=== PATIENT | female | born 1985 | race African-American/Black ===

== ENCOUNTER 2022-02-21 10:15 | Observation (INO) | payer SELFPAY ==
[2022-02-21] VITALS (31 sets, daily range): BP systolic 95–129; BP diastolic 54–85; PULSE 58–82; RESP 12–20; TEMP 36–37.2; O2SAT 94–100
--- NOTE | 2022-02-21 10:18 | ED.PREGNANCY ---
HPI - General Chief complaint: Vaginal Bleeding Stated complaint: vag bleed Time Seen by Provider: 02/21/22 10:18 History of Present Illness HPI Narrative: 37-year-old female per EMS was found in a bathtub filled with blood, with active bleeding and blood clots. Patient unable to provide much history, she is not sure that she is , she does have abdominal pain. Related Data Allergies Allergy/AdvReac Type Severity Reaction Status Date / Time Penicillins Allergy Unknown Verified 02/21/22 10:34 Review of Systems Review of Systems: CONST: No fever. HEENT: No sore throat C/V: No chest pain RESP: No difficulty breathing GI: Reports abdominal pain : Vaginal bleeding M/S: No joint pain. SKIN: No rash. NEURO: Lightheadedness PSYCH: [No depression] [facility] Past Medical History Medical History (Updated 02/21/22 @ 10:49 by Marilyn Willson MD) Asthma Surgical History Surgical History (Updated 02/21/22 @ 10:46 by Marilyn Willson MD) No history of previous surgery Exam Narrative: EXAMINATION OF ORGAN SYSTEMS/BODY AREAS: Constitutional: Vital signs per nursing GENERAL:Moaning and eyes closed in bed HEAD: Normal with no signs of head trauma. EYES: EOMI, conjunctiva normal ENT: Hearing grossly intact LUNGS: Nonlabored breathing. HEART: [Regular rate and rhythm] ABD: [Soft], [tender to palpation] : Active vaginal bleeding EXT: Normal range of motion SKIN: [No rashes or lesions.] NEURO: [No gross focal sensory or strength deficits.] PSYCH: Lethargic, answering questions but very slowly Course Vital Signs Vital signs: Vital Signs Temperature 98.0 F 02/21/22 10:11 Pulse Rate 58 L 02/21/22 10:11 Respiratory Rate 18 02/21/22 10:11 Blood Pressure 129/85 02/21/22 10:11 Pulse Oximetry 100 02/21/22 10:11 Oxygen Delivery Room Air 02/21/22 10:11 Temperature 98.0 F 02/21/22 10:11 Pulse Rate 58 L 02/21/22 10:11 Respiratory Rate 18 02/21/22 10:11 Blood Pressure 129/85 02/21/22 10:11 Pulse Oximetry 100 02/21/22 10:11 Oxygen Delivery Room Air 02/21/22 10:11 MDM - OB/Uterine Contractions MDM Narrative Medical decision making narrative: 37-year-old female presenting with active vaginal bleeding, vital signs within acceptable limits, on exam having active hemorrhage from vaginal vault and with tenderness to the abdomen, I did perform a quick bedside ultrasound, did not note any obvious blood in the right upper quadrant, I did note enlarged uterus with what appears to be possibly 15-week ; IV access obtained and patient immediately starting transfusion with blood, PRINT GRAPHIC DESIGNER contacted and Dr. Martin did evaluate the patient and will take her to the OR. Plan explained to patient. Discharge Plan Discharge Clinical Impression: Vaginal hemorrhage, Incomplete Patient Disposition: Still a Patient Condition: Serious
[2022-02-21 10:32] LABS: Basophils Absolute Auto 0.1 K/mm3 (0.0-0.1); Basophils Percent Auto 0.4 % (0.2-1.2); Eosinophils Percent Auto 0.1 % (0-4.4); Immature Granulocyte Absolute 0.07 K/mm3 (0.00-0.031); Immature Granulocyte Percent A 0.4 % (0-0.5); Lymphocytes Percent Auto 9.5 % (18.3-44.2); Mean Corpuscular HGB Conc 33.3 g/dl (32-36); Mean Corpuscular Hemoglobin 28.5 pg (26-34); Mean Corpuscular Volume 85.5 fl (80-100); Mean Platelet Volume 9.9 fl (7.4-10.4); Monocytes Absolute Auto 0.7 K/mm3 (0.1-0.6); Monocytes Percent Auto 4.5 % (2.6-8.5); Neutrophils Absolute Auto 13.5 K/mm3 (1.3-6.7); Neutrophils Percent Auto 85.1 % (45.5-73.1); Platelet Count Result 277 k/mm3 (150-375); Red Blood Count 4.21 M/mm3 (4.2-5.4); Red Cell Distribution Width 15.2 % (11.5-14.5); White Blood Count 15.9 K/mm3 (4.5-10.0)
--- NOTE | 2022-02-21 10:34 | WPDCN ---
Assessment and Plan Assessment and plan (1) Incomplete : Code(s): O03.4 - Incomplete spontaneous without complication Status: Acute Assessment and Plan: patient with incomplete ab cervical os approx. 4 cm dilated actively bleeding labs, inc. BHCG, T&C, coags to OR for emergent D&C pt unable to provide consent OR and anesthesia notified HPI Data of Consult Date/Time: 02/21/22 10:34 Requesting Physician: Saray Martin MD Primary Care Provider: UNKNOWN,DOCTOR Consult Narrative Narrative: Salome Ambrosio is a 37 year old female. Called by ED requesting immediate response. Arrived at patient bedside to find patient minimally responsive. Per report, patient was found in a bathtub full of blood at home. EMS was called and patient was brought to ED. It is unclear if patient knew that she was . It was reported that patient has had a few miscarriages in the past. Patient unable to answer questions. Review of Systems Review of Systems: ROS unobtainable: Yes unobtainable due to medical condition [facility] Past Medical History Medical History (Updated 02/21/22 @ 10:41 by Saray Martin MD) Asthma Meds Home Medications and Allergies Allergies Allergy/AdvReac Type Severity Reaction Status Date / Time Penicillins Allergy Unknown Verified 02/21/22 10:34 Vital Signs Vital Signs - 24 hr 02/21/22 10:11 Temperature 36.7 C Pulse Rate 58 L Respiratory Rate 18 Blood Pressure 129/85 Pulse Oximetry 100 Oxygen Delivery Room Air Exam Const: General: ill appearing and patient obtunded HENMT: Head: normal to inspection Eyes: General: appearance normal, both eyes and all related structures Neck: Neck: normal visual inspection GI: Inspection: non-distended GI Palp: Yes Soft to palpation : Other: copious amount of blood on towels and chux beneath patient, clot visualized at introitus, cervix approx. 4 cm dilated with tense bulging membranes palpated at os, uterus approx. 16w size Skin: General skin exam: normal color and no rashes or lesions noted
[2022-02-21] MEDS: fentaNYL CITRATE INJ (*CRX) 250 MCG/5 ML VIAL 50 MCG IV PUSH (10:44)
[2022-02-21] MEDS: TUBING, BLOOD SET 1 EACH XX (10:45)
--- NOTE | 2022-02-21 10:57 | PC.NURSE ---
Driver License Reviewing Officer straight cathed patient to obtain drug screen per Dr. Martin's verbal order. After removing catheter, patient passed encapsulated fetus. Patient then passed placenta shortly after fetus.
[2022-02-21] MEDS: fentaNYL CITRATE INJ (*CRX) 100 MCG/2 ML VIAL IV PUSH (11:00)
--- NOTE | 2022-02-21 11:19 | PC.NURSE ---
Academic Support Director contacted regarding . Academic Support Director to return phone call.
[2022-02-21] MEDS: miSOPROStol 200 MCG TABLET 800 MCG RECTAL (11:20)
[2022-02-21] MEDS: SODIUM CHLORIDE 0.9% IV 250 ML 30 ML IV CONT (11:30)
[2022-02-21] MEDS: OXYTOCIN 30 UNITS/NS 500 ML 30 UNITS/500 ML BAG 999 UNITS IV CONT ×2 (11:37→12:30)
--- NOTE | 2022-02-21 11:39 | PC.NURSE ---
Call returned by Rahel at [facility]. She is requesting phone call when tox screen is resulted.
[2022-02-21 11:43] LABS: Amphetamine Screen Urine Negative (Negative); Barbiturate Screen Urine Negative (Negative); Benzodiazepines Screen Urine Negative (Negative); Cannabinoid Screen Urine Negative (Negative); Cocaine Screen Urine Positive (Negative); Methadone Screen Urine Negative (Negative); Opiate Screen Urine Negative (Negative); Phencyclidine Screen Urine Negative (Negative)
--- NOTE | 2022-02-21 12:00 | PC.NURSE ---
Edge Grinder check patient for active bleeding. Sussy pad with little blood and some blood saturated on les.
--- NOTE | 2022-02-21 12:05 | PM.GYNPNOP ---
VACATION GUIDE - A/P Postoperative Procedures: Procedures Operation Date: 02/21/22 11:00 Actual Procedure Side Surgeon p Suction Dilatation and Curettage Saray Martin MD Time Spent With Patient Time: Total time spent is greater than 50% in coordination of care (as documented) at patient's floor/unit and/or counseling patient: Time with patient: Greater than 35 minutes VACATION GUIDE- PN:Subj Post-Op Subjective Date/time seen: 02/21/22 12:05 While preparing to go to OR, patient passed gestational sac with fetus en caul followed immediately by passage of placenta. Bleeding appeared to subside. Several clots evacuated from vagina. Cytotec and pitocin ordered. Decision made to defer D&C as deemed less emergent. Patient still minimally responsive, however, does respond to stimuli and basic commands. Patient was cleansed and fresh linen and peripad were placed under patient. Uncertain of EBL, however, probably 750-1000cc noted between clots and linen. Close monitoring continued. Just prior to administration of medication, peripad was noted to be completely saturated with blood and clots. Medication was administered and several additional clots evacuated from vagina. Decision made to proceed with D&C. OR notified again. Will proceed as soon as possible. Patient still minimally responsive and unable to provide consent. VACATION GUIDE - PN: Obj Data Vital Signs Vital Signs: Vital Signs - 24 hr 02/21/22 10:11 Temperature 36.7 C Pulse Rate 58 L Respiratory Rate 18 Blood Pressure 129/85 Pulse Oximetry 100 Oxygen Delivery Room Air Meds/Results Medications: Active Medications Generic Name Dose Route Start Last Admin Trade Name Freq PRN Reason Stop Dose Admin Sodium Chloride 250 mls @ 30 mls/hr 02/21/22 10:16 02/21/22 11:30 Normal Saline Iv IV CONT 02/21/22 18:35 30 mls/hr .Q8H20M STA Administration Oxytocin/Sodium Chloride 30 units in 500 mls @ 999 mls/hr 02/21/22 11:45 Oxytocin 30 Units/Ns 500 Ml IV CONT .Q31M HERMILO Misoprostol 800 mcg 02/21/22 13:00 02/21/22 11:20 Misoprostol 200 Mcg Tablet RECTAL 800 mcg QID HERMILO Administration Labs CBC & Chem 7: 02/21/22 10:26 Labs: Laboratory Results - last 24 hr 02/21/22 02/21/22 02/21/22 10:26 10:26 11:13 WBC 15.9 H RBC 4.21 Hgb 12.0 Hct 36.0 L MCV 85.5 MCH 28.5 MCHC 33.3 RDW 15.2 H Plt Count 277 MPV 9.9 Immature Gran % (Auto) 0.4 Neut % (Auto) 85.1 H Lymph % (Auto) 9.5 L [place] % (Auto) 4.5 Eos % (Auto) 0.1 Baso % (Auto) 0.4 Lymph # (Auto) 1.50 [place] # (Auto) 0.7 H Eos # (Auto) 0.0 Baso # (Auto) 0.1 Abs Immat Gran (auto) 0.07 H Absolute Neuts (auto) 13.5 H Absolute Nucleated RBC 0.0 Nucleated RBC % 0.0 Urine Opiates Screen Negative Urine Methadone Screen Negative Ur Barbiturates Screen Negative Ur Phencyclidine Scrn Negative Ur Amphetamine Screen Negative U Benzodiazepines Scrn Negative Urine Cocaine Screen Positive A U Cannabinoids Screen Negative Blood Type B Positive Antibody Screen Negative Crossmatch See Detail
--- NOTE | 2022-02-21 12:13 | PC.NURSE ---
Rahel from soap grinder's office given time of fetus delivery, [id number]
--- NOTE | 2022-02-21 12:20 | PC.NURSE ---
Nurse Auditor walked fetus and placenta specimen down to pathology. Specimen given to pathology staff.
--- NOTE | 2022-02-21 12:25 | PC.NURSE ---
Milk Route Supervisor called regarding results of tox screen. Milk Route Supervisor requesting demographic information (address, phone number, etc) once available.
--- NOTE | 2022-02-21 12:35 | PC.NURSE ---
Nuclear Medicine Physician checked patient for active bleeding. Sussy pad with little blood and little change from last check, clot on pad. Syed still has saturated blood but no new blood noted.
--- NOTE | 2022-02-21 12:56 | PC.NURSE ---
Per Dr. Martin, hold antibiotic and send with patient to OR.
[2022-02-21] MEDS: DOXYCYCLINE 100 MG/NS 100 ML 100 MG/100 ML BAG IVPB ×2 (13:16→23:44)
--- NOTE | 2022-02-21 13:22 | PC.NURSE ---
Stone Unloader check patient for active bleeding. Sussy pad has little blood, same as before, and les remains the same.
--- NOTE | 2022-02-21 13:52 | PC.NURSE ---
Patient care report called to ELVIRA Casey in OR. All questions answered at this time.
[2022-02-21] MEDS: LACTATED RINGERS 1,000 ML 30 ML IV CONT (14:20)
--- NOTE | 2022-02-21 14:26 | WPDANESEPPF ---
Anes - Initial Pre Proc Eval Procedure: Operation Date: 02/21/22 11:00 Proposed Procedures p Suction Dilatation and Curettage - Saray Martin MD Date/Time: 02/21/22 14:26 Surgeon: Saray Martin MD Pre Op Diagnosis: vag bleed Patient Data Age: 37 Gender: F Height: Weight: 75 kg Last Vital Signs Temp 36.7 C 02/21/22 10:11 Pulse 61 02/21/22 12:56 Resp 15 02/21/22 12:56 BP 115/70 02/21/22 12:56 Pulse Ox 100 02/21/22 11:51 O2 Del Method Room Air 02/21/22 10:11 Allergies Allergy/AdvReac Type Severity Reaction Status Date / Time Penicillins Allergy Unknown Verified 02/21/22 10:34 Laboratory Tests 02/21/22 02/21/22 02/21/22 10:26 10:26 10:26 WBC 15.9 K/mm3 H K/mm3 (4.5-10.0) RBC 4.21 M/mm3 M/mm3 (4.2-5.4) Hgb 12.0 g/dL g/dL (12.0-15.0) Hct 36.0 % L % (37.0-47.0) MCV 85.5 fl fl (80-100) MCH 28.5 pg pg (26-34) MCHC 33.3 g/dl g/dl (32-36) RDW 15.2 % H % (11.5-14.5) Plt Count 277 k/mm3 k/mm3 (150-375) MPV 9.9 fl fl (7.4-10.4) Immature Gran % (Auto) 0.4 % % (0-0.5) Neut % (Auto) 85.1 % H % (45.5-73.1) Lymph % (Auto) 9.5 % L % (18.3-44.2) [place] % (Auto) 4.5 % % (2.6-8.5) Eos % (Auto) 0.1 % % (0-4.4) Baso % (Auto) 0.4 % % (0.2-1.2) Lymph # (Auto) 1.50 K/mm3 K/mm3 (0.9-3.2) [place] # (Auto) 0.7 K/mm3 H K/mm3 (0.1-0.6) Eos # (Auto) 0.0 K/mm3 K/mm3 (0-0.3) Baso # (Auto) 0.1 K/mm3 K/mm3 (0.0-0.1) Abs Immat Gran (auto) 0.07 K/mm3 H K/mm3 (0.00-0.031) Absolute Neuts (auto) 13.5 K/mm3 H K/mm3 (1.3-6.7) Absolute Nucleated RBC 0.0 K/mm3 K/mm3 (0.0-0.012) Nucleated RBC % 0.0 % % (0.0-0.2) Beta HCG, Quant 27931.00 mIU/ML mIU/ML Urine Opiates Screen Urine Methadone Screen Ur Barbiturates Screen Ur Phencyclidine Scrn Ur Amphetamine Screen U Benzodiazepines Scrn Urine Cocaine Screen U Cannabinoids Screen Blood Type B Positive Antibody Screen Negative Crossmatch See Detail 02/21/22 11:13 WBC RBC Hgb Hct MCV MCH MCHC RDW Plt Count MPV Immature Gran % (Auto) Neut % (Auto) Lymph % (Auto) [place] % (Auto) Eos % (Auto) Baso % (Auto) Lymph # (Auto) [place] # (Auto) Eos # (Auto) Baso # (Auto) Abs Immat Gran (auto) Absolute Neuts (auto) Absolute Nucleated RBC Nucleated RBC % Beta HCG, Quant Urine Opiates Screen Negative (Negative) Urine Methadone Screen Negative (Negative) Ur Barbiturates Screen Negative (Negative) Ur Phencyclidine Scrn Negative (Negative) Ur Amphetamine Screen Negative (Negative) U Benzodiazepines Scrn Negative (Negative) Urine Cocaine Screen Positive A (Negative) U Cannabinoids Screen Negative (Negative) Blood Type Antibody Screen Crossmatch Patient hx anesthesia problems: none Family hx anesthesia problems: none Results Review: All pre-operative results and documents have been reviewed as part of the pre-operative evaluation. [facility] Past Medical History Medical History Asthma Surgical History Surgical History No history of previous surgery Anes - Eval Final PreProcedure Day of Procedure 02/21/22 14:26 Patient weight: normal Heart: regular rate and rhythm Lungs: clear to auscultation Airway: Mallampati scale class II Neurological: lethargic Last oral intake: >/= 8 hours ASA classification: II Emergent
[2022-02-21] MEDS: LIDOCAINE HCL 1% PF 30 ML VIAL INFILTRATE (15:41)
--- NOTE | 2022-02-21 16:05 | PCCCNOTE ---
Received referral to obtain contact info for pt. Per EMS run report, pt. was brought in by [place] [employer] and [place] police were on scene. Called [place] [employer] and was given phone number [phone]. They stated that they did not have a name but it was a relative on scene who called in. Called number and voicemail message is in khmer. Voice message left requesting call back to surgery department. Pt.'s nurse provided with info.
--- NOTE | 2022-02-21 16:17 | W.PM.PROC2 ---
Procedure Note - Detailed Date of Procedure 02/21/22 Pre-op Diagnosis Incomplete Post-op Diagnosis Same Procedure Performed Examination under anesthesia Suction dilation and curettage Surgeon Saray Martin MD Anesthesia MAC Findings Moderate amount of products of conception Description of Procedure Patient was taken to the operating room where she was transferred to the operating room table. Patient was placed in dorsal supine position. Anesthesia was administered and found to be adequate. Patient was repositioned in dorsal lithotomy position with the use of Ambrosio stirrups. She was prepped and draped in usual sterile fashion. Time-out was performed. An examination under anesthesia revealed cervix approximately 3 cm dilated with clots palpated behind cervical os. A bivalve speculum was inserted into the vagina. With good visualization of the cervix, a single-tooth tenaculum was used to grasp the anterior lip of the cervix. A paracervical block was performed with 1% lidocaine. 5 cc of lidocaine was administered both sides for a total of 10 cc. A size 14 rigid curette was introduced into the endometrial cavity. The curette was attached to suction tubing. The aspirator was activated and the curette was gently rotated to clear uterus of all contents. A few passes were made with curette. The size 14 curette was replaced with a size 10 curette as the uterus began to involute. This curette was introduced into the endometrial cavity and rotated until a gritty texture was noted in all quadrants of the uterus. A sharp curette was used to explore all quadrants to ensure complete evacuation. Procedure was deemed complete. The tenaculum was removed. No bleeding was noted from tenaculum puncture sites. The remainder of the vagina was cleansed and dried and the speculum was removed. A red rubber catheter was used to drain the bladder of 150 cc of urine. The patient was cleansed and dried. She was taken out of dorsal lithotomy position. Patient was awakened from anesthesia, however, still in obtunded state that she was in prior to procedure. She was transferred to recovery room in stable condition. All sponge, lap, and instrument counts were correct at end of the procedure. Estimated Blood Loss 100 IV Fluids 500 Urine Output 150 Drains No Packing No Pathology Yes (uterine contents) Complications No immediate complications Condition Stable Disposition PACU [facility] Billing Surgery - Charge Forward: Surgery Billing
[2022-02-21] MEDS: LACTATED RINGERS 1,000 ML 125 ML IV CONT (17:29)
--- NOTE | 2022-02-21 19:26 | ADMGEN ---
1700 This patient, Salome Ambrosio, was admitted to Medical Room 249-01. Unable to orient patient/family to hospital policies and general routines.
--- NOTE | 2022-02-21 21:30 | PC.NURSE ---
at 2014 I was in patient room to perform my assessment. Pt was alert and oriented and eating at the time that I entered the room. Patient asked for more jello, pudding and applesauce and juice. I took those to the patient and told her that I would be back shortly that I needed to ask her some questions to complete her admission. Pt verbalized understanding and asked me to clipper and turner the light. When I went back into the room at 2044 pt appeared to be sleeping. I called the patients name and rubbed her arm and her sternum, she mumbled something but would not wake up. vital signs BP 117/59, temp. 99.0, 100% O2, resp. 16 and HR 71. I told patient I needed to check and see how much she was bleeding. She did say at this time she needed to pee. With the help of the POCKETED SPRING ASSEMBLER we put her on the bedpan. We got her cleaned up and I asked the pt to raise her bottom up so I could put a pad on her to monitor bleeding and pt did raise up for me. I tried again to speak with the patient and get some history from her. I asked her about home meds, she would not speak but made the motion as if she took inhalers. When I asked if she took inhalers she nodded yes. Pt will not speak or offer any further information, lays in the bed with her eyes closed and appears to be sleeping.
[2022-02-21 21:31] LABS: Hematocrit 34.3 % (37.0-47.0); Hemoglobin 11.3 g/dL (12.0-15.0); Mean Corpuscular HGB Conc 32.9 g/dl (32-36); Mean Corpuscular Hemoglobin 28.7 pg (26-34); Mean Corpuscular Volume 87.1 fl (80-100); Mean Platelet Volume 10.3 fl (7.4-10.4); Platelet Count Result 211 k/mm3 (150-375); Red Blood Count 3.94 M/mm3 (4.2-5.4); Red Cell Distribution Width 15.5 % (11.5-14.5); White Blood Count 31.5 K/mm3 (4.5-10.0)
--- NOTE | 2022-02-22 00:40 | PC.NURSE ---
Addendum entered by Nara Lopez RN 02/22/22 02:06: time was [id number] Original Note: When hanging the antibiotic pt asking for food. Went back into the room to ask the pt admission questions and health history and pt again appeared to be sleeping. when shaking her arm and saying her name pt would only moan or shake her head yes or no. Pt would not answer any questions.
--- NOTE | 2022-02-22 02:06 | PC.NURSE ---
at 0130 was told by BIOMATERIALS ENGINEER that patient was awake in room had asked for food and was watching TV. I went in to ask questions. Patient was able to tell me she lives at home alone, told me her mom would be her supervisor contact and service clerks whose name is Jeanine but was unable to give me a number. Pt states she wears glasses. Hx: asthma, had a heart ablation in 2010, had heart surgery at 3mos to repair a valve, and hernia repair at 6mos. She told me she is not a drinker but she does use cocaine and last use was 3 1/2 days ago. She denied /GI, neuro, Integumentary issues. When I came to asking her about the miscarriage and reproductive health pt starts to nod off and will not answer any further questions.
[2022-02-22 05:25] VITALS: BP 110/60; PULSE 73; RESP 20; TEMP 36.8; O2SAT 100
[2022-02-22 05:32] LABS: Hematocrit 29.5 % (37.0-47.0); Hemoglobin 9.9 g/dL (12.0-15.0); Mean Corpuscular HGB Conc 33.6 g/dl (32-36); Mean Corpuscular Hemoglobin 28.6 pg (26-34); Mean Corpuscular Volume 85.3 fl (80-100); Mean Platelet Volume 10.3 fl (7.4-10.4); Platelet Count Result 208 k/mm3 (150-375); Red Blood Count 3.46 M/mm3 (4.2-5.4); Red Cell Distribution Width 15.4 % (11.5-14.5)
[2022-02-22] MEDS: ACETAMINOPHEN 325 MG TABLET 650 MG PO (07:41)
--- NOTE | 2022-02-22 10:50 | PM.GYNPNOP ---
BURR MACHINE OPERATOR - A/P Assessment and plan (1) Incomplete : Code(s): O03.4 - Incomplete spontaneous without complication Status: Acute Assessment and Plan: POD#1 s/p D&C for incomplete ab improving this AM continue routine postoperative care will add [place] to pain regimen begin ferrous sulfate supplementation as well for anemia events from yesterday as well as procedure discussed in detail with patient as she had no recollection of what happened patient appropriately sad and tearful about loss support and encouragement given discussed importance of follow up care, particularly as this is the second 2nd trimester loss she has experienced discussed that she may benefit from MFM consult prior to becoming again s/p care coordination consult-appreciated as patient will need assistance upon discharge patient does not have phone, but did provide number for her friend Sidney ([phone]) and has also been in contact with her mother offered to attempt to help patient with resources for substance abuse as well from ob/gyn physician perspective, patient likely able to be discharged this afternoon discharge pending care coordination (2) S/P dilation and curettage: Code(s): Z98.890 - Other specified postprocedural states Status: Acute Postoperative Procedures: Procedures Operation Date: 02/21/22 11:00 Actual Procedure Side Surgeon p Exam under Anesthesia, Suction Dilatation and Curettage Not Applicable Saray Martin MD Time Spent With Patient Time: Total time spent is greater than 50% in coordination of care (as documented) at patient's floor/unit and/or counseling patient: Time with patient: 25 - 35 minutes BURR MACHINE OPERATOR- PN:Subj Post-Op Subjective Date/time seen: 02/22/22 10:50 Patient is awake and alert this morning. Was able to obtain more history from her. She states that she lives in [facility] and came to [place] on either Thu. or . with a friend. She was staying at the house where EMS picked her up, but did not know the woman who lived at this house very well. Yesterday morning, she reports onset of intermittent cramping that progressively worsened. She also started bleeding. The woman helped her into the bathtub thinking the warm water may help with her cramping, however, cramping continued and bleeding became heavier. This prompted the woman to call EMS. Including most recent miscarriage yesterday, patient is a . She has a history of two full term deliveries (one and one C/S). She also has a history of an elective TOP s/p D&C as well as an 18 week miscarriage that she states was similar to what she experienced yesterday, however, did not require a D&C afterwards. Patient reports a history of irregular menses and was uncertain that she was . Last known menstrual cycle was in November and she did not have a cycle in December or January. Skipping a few months, however, is not uncommon for her. She also reports spotting and bleeding around 8/10 for two days and assumed that her cycle was about to start. This was an unplanned , however, would have been desired. This morning, patient reports mild-moderate cramping. Pain somewhat alleviated with current pain medications. She also reports mild-moderate bleeding (similar to menses) and has changed two pads this morning. She reports mild lightheadedness as well. Denies any headache, chest pain, SOB, N/V. She is tolerating a PO diet and ambulating without difficulty. She is also voiding without difficulty. Review of Systems Review of Systems: All systems reviewed & are unremarkable except as noted in HPI and below Constitutional: Constitutional: Reports as per HPI, Reports no additional constitutional complaints, Denies chills and Denies fever(s) Eyes: Eyes: Reports as per HPI and Reports no additional eye complaints ENT: Reports system reviewed and no additional complaints, except as documented and Reports as per HPI Cardiovascular: Cardiovascular: Re
--- NOTE | 2022-02-22 11:38 | WPDANESPN ---
Anes - Prog Note Post-Op Date/Time: 02/22/22 11:38 Cardiovascular status: normal Respiratory status: normal Airway patency: baseline Mental status: baseline Post-Op hydration status: normal Vital Signs: Last Vital Signs Temp 36.8 C 02/22/22 05:25 Pulse 73 02/22/22 05:25 Resp 20 02/22/22 05:25 BP 110/60 02/22/22 05:25 Pulse Ox 100 02/22/22 05:25 O2 Del Method Room Air 02/21/22 20:15 Pain Score (VAS): 07/15 I/O: Intake & Output 02/21/22 02/22/22 02/22/22 23:59 07:59 15:59 Intake Total 1158 550 Output Total 1050 250 Balance 108 300 Laboratory Tests 02/22/22 05:15 02/21/22 02/21/22 02/21/22 10:26 10:26 11:13 WBC RBC Hgb Hct MCV MCH MCHC RDW Plt Count MPV Beta HCG, Quant 72331.00 Urine Opiates Screen Negative Urine Methadone Screen Negative Ur Barbiturates Screen Negative Ur Phencyclidine Scrn Negative Ur Amphetamine Screen Negative U Benzodiazepines Scrn Negative Urine Cocaine Screen Positive A U Cannabinoids Screen Negative Blood Type B Positive Antibody Screen Negative Crossmatch See Detail 02/21/22 02/22/22 21:27 05:15 WBC 31.5 H 19.0 H RBC 3.94 L 3.46 L Hgb 11.3 L 9.9 L Hct 34.3 L 29.5 L MCV 87.1 85.3 MCH 28.7 28.6 MCHC 32.9 33.6 RDW 15.5 H 15.4 H Plt Count 211 208 MPV 10.3 10.3 Beta HCG, Quant Urine Opiates Screen Urine Methadone Screen Ur Barbiturates Screen Ur Phencyclidine Scrn Ur Amphetamine Screen U Benzodiazepines Scrn Urine Cocaine Screen U Cannabinoids Screen Blood Type Antibody Screen Crossmatch Post-procedural complaints: none Patient Feedback: Patient satisfied with anesthetic care.
[2022-02-22] MEDS: DOXYCYCLINE 100 MG/NS 100 ML 100 MG/100 ML BAG IVPB (12:53)
[2022-02-22] MEDS: FERROUS SULFATE 324 MG TABLET PO (12:53)
[2022-02-22 14:05] VITALS: BP 112/69; PULSE 85; RESP 20; TEMP 36.7; O2SAT 100
[2022-02-22] MEDS: HYDROcodone/acetaminophen (*CRX) 5-325 MG TABLET 1 TAB PO (14:22)
--- NOTE | 2022-03-14 09:54 | PM.DS ---
DS: Admitting Diagnosis Discharge Date 02/22/22 Admitting Diagnosis Incomplete DS: Discharge Diagnosis Discharge Diagnosis (1) S/P dilation and curettage: Code(s): Z98.890 - Other specified postprocedural states Status: Acute DS: Summary Hospital Course Hospital Course: Patient with incomplete ab. s/p D&C. Bleeding subsided and patient improved clinically. Discharged in stable condition. Time Spent with Patient Time attestation: Total time spent providing and/or coordinating discharge services: DS: Data Data Completed and Pending Completed studies during hospitalization: Pending at discharge 02/21/22 11:16 Surgical [PTH] Routine 02/21/22 15:38 Surgical [PTH] Routine Discharge Plan Discharge Attending physician on discharge: Saray Martin Discharging Clinician: Saray Martin Anticipated Discharge Date/Time: 02/22/22 14:31 Patient Disposition: Home, Self-Care Activity: as tolerated and pelvic rest Diet: regular Discharge Instructions: Call office [phone] to schedule postoperative visit in 2 weeks. You may take Ibuprofen 600mg every 6 hours as needed for pain. You may alternate with Tylenol 1000mg (two extra strength tablets) every 6 hours as well. Call office or go to ED for pain not controlled with medication, headache, chest pain, shortness of breath, fever, chills, persistent nausea or vomiting, severe abdominal pain, heavy vaginal bleeding >2 pads/hour, foul vaginal discharge or odor. Follow-up/Referrals: UNKNOWN,DOCTOR [Primary Care Provider] - Saray Martin MD [Physician] - Date of admission: 02/21/22 11:18 Primary Care Provider: UNKNOWN,DOCTOR Admitting Provider: Saray Martin Attending physician on admission: Saray Martin Condition: Stable
== END 2022-02-22 17:43 | disposition home or self-care (01) ==
LOC: ANHED 10:33 → ANHSURGERY 10:33 → ANH2MED 02-22 10:50
PROVIDERS: Admitting Provider Student in an Organized Health Care Education/Training Program; Emergency Provider Emergency Medicine; Visit Provider Student in an Organized Health Care Education/Training Program
PROC: (CPT 59812; principal; 2022-02-21 14:30)
DX: O03.4 Incomplete spontaneous abortion without complication (principal); O99.012 Anemia complicating pregnancy, second trimester; D64.9 Anemia, unspecified; Z3A.00 Weeks of gestation of pregnancy not specified
CPT/HCPCS: 59812; 36415; 36430; 51701; 80307; 84702; 85025; 85027; 86850; 86900; 86901; 86920; 88305; 96365; 96367; 96374; 96375; 99285; A9270; G0378; J0131; J1741; J2590; J2704; J3010; J7050; J7120; P9016